=== PATIENT | female | born 1990 | race Caucasian/White ===

== ENCOUNTER 2020-08-30 14:22 | Outpatient (RCR) | payer BC, SELFPAY | END 2020-10-04 23:59 | LOC: IMMUN 14:22 | PROVIDERS: Visit Provider Family Medicine | DX: Z23 Encounter for immunization (principal) | CPT/HCPCS: 0001A; 91300 ==

== ENCOUNTER 2023-11-17 15:52 | Emergency (ER) | payer BC, SELFPAY ==
[2023-11-17 15:53] VITALS: BP 147/94; PULSE 98; RESP 15; TEMP 36.8; O2SAT 99; BMI 43.9
[2023-11-17 16:05] VITALS: O2SAT 100
--- NOTE | 2023-11-17 16:08 | EKG12_ITS ---
Test Reason : Blood Pressure : / mmHG Vent. Rate : 087 BPM Atrial Rate : 087 BPM P-R Int : 166 ms QRS Dur : 080 ms QT Int : 380 ms P-R-T Axes : 025 053 041 degrees QTc Int : 457 ms Normal sinus rhythm with sinus arrhythmia Normal ECG Confirmed by TONY BERRY, HANNA ([id number]), dictionary editor DAYANARA WHITE ([id number]) on 11/18/2023 1:51:03 PM Referred By: Kaya Seo Confirmed By:HANNA JIMENEZ MD
--- NOTE | 2023-11-17 16:09 | EDS_ITS ---
HPI History of Present Illness Chief Complaint: Shortness of Breath Detail of Chief Complaint: Shortness of breath Informant: patient Narrative Narrative: Patient presents emergency department complaint shortness of breath that started this afternoon when she tried to lay down for a nap. Patient fell like she could not breathe. She tells me she has had some nasal congestion for a couple of days. She had indigestion 2 days ago and some chest pressure but then that resolved. She denies recent travel or surgery. She denies any leg edema. She has been around a friend's children who are sick. She has not had a fever. Currently feels somewhat lightheaded but the breathing seems to be somewhat improved. She is never felt this way before. She does have history of anxiety but it has felt different in the past. No significant stressors. PFSH PFSH Medical History no medical history Allergy/AdvReac Type Severity Reaction Status Date / Time No Known Allergies Allergy Verified 11/17/23 15:54 Social History Smoking Status: Never smoker ROS ROS ED Review of Systems ROS Unobtainable: other Constitutional Constitutional ED: Reports lethargy; Denies chills, fever(s), sweats or weight loss Eyes Eyes: Denies blurry vision, change in vision or diplopia ENT ENT ED: Reports rhinorrhea; Denies sore throat Cardiovascular Cardiovascular: Reports chest pain; Denies orthopnea or racing heartbeat Respiratory/Chest Respiratory/Chest: Reports dyspnea; Denies cough, dyspnea on exertion, orthopnea or sputum Gastrointestinal Gastrointestinal: Denies abdominal pain, diarrhea, nausea or vomiting Genitourinary Genitourinary ED: Denies dysuria, hematuria or urinary frequency Musculoskeletal Musculoskeletal: Denies arthralgias, back pain, myalgias or neck pain Integumentary Denies abscess, Abrasions or rash Neurologic Neurologic: Denies headache(s) or weakness Psychiatric Psychiatric: Denies anxiety, depression or suicidal thoughts Endocrine Endocrinology: Denies polydipsia, polyphagia or polyuria Hematologic/Lymphatic Hematologic/Lymphatic: Denies easy bleeding, easy bruising or lymphadenopathy Allergic/Immunologic Allergic/Immunologic ED: Denies mouth swelling, tongue swelling or urticaria EXAM Physical Exam Const Vital Signs: 11/17/23 15:53 11/17/23 16:05 11/17/23 16:21 Temperature 98.2 F Temperature Source Temporal Pulse Rate 98 Respiratory Rate 15 Respiratory Effort Normal Respiratory Depth Normal Respiratory Pattern Normal Blood Pressure 147/94 H Blood Pressure Mean 111 Pulse Ox 99 100 Oxygen Delivery Method Room Air Room Air Room Air 11/17/23 17:52 Temperature Temperature Source Pulse Rate 83 Respiratory Rate 16 Respiratory Effort Respiratory Depth Respiratory Pattern Blood Pressure 131/80 H Blood Pressure Mean 97 Pulse Ox 96 Oxygen Delivery Method Room Air Positive well nourished and well developed General Appearance ED: well developed and NAD HEENT Reports TM's clear and moist mucous membranes normocephalic and atraumatic; Negative for trauma or tenderness Tympanic Membrane ED: Yes TM's clear Eyes PERRL and EOMs intact bilaterally General Eye ED: Negative for pale conjunctiva or scleral icterus Neck no lymphadenopathy, supple and no JVD General: Negative for tenderness Chest Wall inspection of chest normal and palpation of chest normal Chest: Negative for tenderness Resp normal respiratory effort and clear to auscultation bilaterally Effort and Inspection: Negative for respiratory distress or pain with movement Auscultation: Negative for rhonchi, wheezes or diminished lung sounds Cardio regular rate, regular rhythm, S1 normal heart sound, S2 normal heart sound and no murmurs Peripheral Pulses: pulses 2+ throughout GI normal to inspection, nondistended, normoactive bowel sounds, soft to palpation, non-tender, non-distended and no masses Back/Spine no CVA tenderness and no thoracic nor lumbar tenderness Extremity normal to inspection General Extremety ED: Negative for edema General Extremity: Negative for edema Neuro oriented x3, CN's II-XII intact bilaterally, no sensory deficits noted and gait normal Sensorium / Orientation: awake, alert, oriented to person, oriented to place and oriented to time Motor Exam: strength 5/5 throughout and strength abnormal Psych mental status grossly normal Skin no rashes or lesions noted and no wounds MDM MDM MDM Narrative Medical decision making narrative: Patient presented with dyspnea when trying to fall asleep. She complains of some nasal drainage. She has had minimal cough. Clinically looks well. No history of recent travel or surgery. IV line established. EKG obtained on arrival showed sinus rhythm with rate of 87 bpm with PACs. CBC with differential count of 8.8 with hemoglobin 9.5 and platelet count of 356. Chemistries unremarkable. Troponin normal at 4. D-dimer obtained was elevated 0.5 therefore CTA of the chest was obtained which was negative for PE. Prior to obtaining the CTA of the chest the chest x-ray was done which showed no acute disease process. This point etiology of her dyspnea unclear. Clinically she l ooks well. Suspect possibility of anxiety. Patient will be discharged to home. Vies to follow-up with her primary care physician or physician on-call for no doc within next 5 to 7 days. Lab Data Attestation: I reviewed the patient's lab results. Labs: Laboratory Results - last 24 hr 11/17/23 16:19 WBC 8.8 RBC 4.53 Hgb 9.5 L Hct 31.7 L MCV 70.0 L MCH 21.0 L MCHC 30.0 L RDW Std Deviation 43.8 RDW Coeff of Opal 17.5 H Plt Count 356 MPV 9.7 Immature Gran % (Auto) 0.300 Neut % (Auto) 70.6 H Lymph % (Auto) 19.1 [place] % (Auto) 7.3 Eos % (Auto) 1.8 Baso % (Auto) 0.9 Absolute Neuts (auto) 6.2 Absolute Lymphs (auto) 1.68 Nucleated RBC % 0 D-Dimer Quant (PE/DVT) 0.50 H Sodium 138 Potassium 3.5 Chloride 108 H Carbon Dioxide 23.0 Anion Gap 7 BUN 15 Creatinine 0.78 Estim Creat Clear Calc 121.43 Est GFR (MDRD) Af Amer 110 Est GFR (MDRD) Non-Af 91 BUN/Creatinine Ratio 19.1 Glucose 121 H Calcium 9.6 Troponin I High Sens 4 Radiography Diagnostic Testing: Clinical Impression(s) from Imaging Studies Chest X-Ray 11/17/23 16:23 IMPRESSION: Normal x-ray examination of the chest. Electronically Signed: Carl Acevedo MD at 16:47 EDT , Chest CTA 11/17/23 17:06 IMPRESSION: Normal CTA chest examination, without a demonstrated pulmonary embolism or arterial dissection. Electronically Signed: Carl Acevedo MD at 18:18 EDT , Discharge Plan Triage Chief Complaint: Shortness of Breath ED Provider: Kaya Seo Dx/Rx/DC Orders Clinical Impression: Dyspnea Instructions: ED Dyspnea Primary Care Provider: Care Physician,No Primary Referrals: Fabio Ortiz MD [Med Staff - Senior Technical Support Engineer] - 5-7 Days Care Physician,No Primary [Primary Care Provider] - Print Language: [place] Disposition Disposition: Home, Self Care
[2023-11-17 16:21] VITALS: O2SAT 100
--- NOTE | 2023-11-17 16:23 | RAD_ITS ---
STUDY: X-RAY CHEST REASON FOR EXAM: Female, 33 years old. dyspnea TECHNIQUE: Single AP portable view of the chest. COMPARISON: 02/17/2009. FINDINGS: The lungs are clear and expanded. There is no demonstrated pleural abnormality. Normal size heart. Normal mediastinum and joseluis. Normal visualized pulmonary arteries. Normal visualized aortic arch and descending thoracic aorta. Normal visualized thoracic spine. Normal visualized ribs, clavicles, and shoulders. There is no demonstrated abnormality of the visualized soft tissue structures of the upper abdomen. RAD/Chest 1 View (Portable) IMPRESSION: Normal x-ray examination of the chest. Electronically Signed: Carl Acevedo MD at 16:47 EDT ,
[2023-11-17 16:26] LABS: Absolute Lymphocyte Count 1.68 X10^3/uL (0.83-4.51); Absolute Neutrophil Count 6.2 X10^3/uL (2.0-7.7); Basophil# 0.08 X10^3/uL; Basophil% 0.9 % (0-1); Eosinophil# 0.16 X10^3/uL; Eosinophils% 1.8 % (0-5); Hematocrit 31.7 % (37-47); Hemoglobin 9.5 g/dL (12.0-15.0); Lymphocyte # 1.68 X10^3/ul (0.83-4.51); Lymphocyte % 19.1 % (19-41); Mean Platelet Vol. 9.7 fl (6.2-12.0); Monocyte# 0.64 X10^3/uL; Monocyte% 7.3 % (0-10); NRBC Flagged by Analyzer 0 % (0-5); Neutrophil # 6.22 X10^3/uL (2.7-7.7); Neutrophil % 70.6 % (47-70); Platelet Count 356 K/mm3 (150-450); RBC Distribution Width CV 17.5 % (11.6-14.6); RBC Distribution Width SD 43.8 fl (35.1-43.9); Red Blood Count 4.53 M/mm3 (4.2-5.4); White Blood Count 8.8 K/mm3 (4.4-11.0)
[2023-11-17 16:45] LABS: Anion Gap 7 (5-15); BUN 15 mg/dL (7-18); BUN/Creat Ratio 19.1 RATIO (10-20); Calcium,Total 9.6 mg/dL (8.5-10.1); Chloride 108 mmol/L (98-107); Creatinine, Serum 0.78 mg/dL (0.55-1.02); EST Glomerular Filtration Rate 91 mL/min (>60); Est Glom Filt Rate - Afr Amer 110 mL/min (>60); Estimated Creatinine Clearance 121.43 ml/min; Glucose 121 mg/dL (74-106); Potassium 3.5 mmol/L (3.5-5.1); Sodium Level 138 mmol/L (136-145); Troponin-I HS 4 pg/mL (3.0-54.0)
--- NOTE | 2023-11-17 17:06 | CT_ITS ---
STUDY: CTA CHEST REASON FOR EXAM: Female, 33 years old. dyspnea, elevated d-dimer RADIATION DOSAGE (If Supplied By Facility): CTDIvol = ( 13.67 ) mGy, DLP = ( 492.01 ) mGycm TECHNIQUE: The examination was performed with the intravenous administration of IV 100mL [id number]-[id number]. Post-processing of the angiographic images was performed, with multiplanar reformation and 3D reconstruction. Individualized dose optimization techniques were used for this CT. COMPARISON: None. FINDINGS: Normal enhancement of the main pulmonary artery and right and left pulmonary arteries. Normal enhancement of the bilateral peripheral pulmonary arteries. There is no demonstrated pulmonary embolism. Normal thoracic aorta and visualized great vessels. There is no demonstrated aortic dissection. Normal heart and pericardium. Normal mediastinum. Normal hilar regions. Normal visualized trachea and bronchi. The lungs are well expanded. Normal pulmonary parenchyma. Normal pleura. Normal chest wall structures. Normal osseous structures. Normal visualized upper abdomen. CT/CTA Chest W/WO Contrast IMPRESSION: Normal CTA chest examination, without a demonstrated pulmonary embolism or arterial dissection. Electronically Signed: Carl Acevedo MD at 18:18 EDT ,
[2023-11-17 17:52] VITALS: BP 131/80; PULSE 83; RESP 16; O2SAT 96
[2023-11-17 18:54] VITALS: BP 134/74; PULSE 84; RESP 16; TEMP 36.2; O2SAT 95
== END 2023-11-17 19:03 | disposition home or self-care (01) ==
PROVIDERS: Emergency Provider Emergency Medicine; Referring Provider Emergency Medicine; Visit Provider Emergency Medicine
DX: R06.00 Dyspnea, unspecified (principal)
CPT/HCPCS: 71045; 71275; 80048; 84484; 85025; 85379; 87631; 93005; 99283; Q9967; A4216